=== PATIENT | female | born 1985 | race Caucasian/White ===

== ENCOUNTER 2023-04-14 12:44 | Day surgery (SDC) | payer OTHER ==
[~2023-04-14] VITALS: Ht 162.6 cm; Wt 128.5 kg
[~2023-04-14 12:44] MED LIST: HYDR-3490 PO; LISI10TA22 PO
[2023-04-14] MEDS ORDERED: LR 1,000 ML IV SCH (13:00)
[2023-04-14] MEDS ORDERED: ROCURONIUM BROMIDE 50MG/5ML VIAL As Ordered ONE (14:40)
[2023-04-14] MEDS ORDERED: propofoL 200 MG/20 ML VIAL As Ordered ONE (14:40)
[2023-04-14] MEDS ORDERED: KETOROLAC 60MG 2ML VIAL As Ordered ONE (14:40)
[2023-04-14] MEDS ORDERED: SUGAMMADEX SODIUM 500 MG/5 ML VIAL (BRIDION) As Ordered ONE (14:41)
[2023-04-14] MEDS ORDERED: ONDANSETRON 4MG 2ML VIAL As Ordered ONE (14:41)
[2023-04-14] MEDS ORDERED: LIDOCAINE 2% 100MG/5ML SDV (FOR ANES.) As Ordered ONE (14:57)
[2023-04-14] MEDS ORDERED: MIDAZOLAM INJ 2MG/2ML VIAL As Ordered ONE (15:25)
[2023-04-14] MEDS ORDERED: fentaNYL 100 MCG/2 ML INJECTION As Ordered ONE (15:25)
[2023-04-14] MEDS: AMPICILLIN SOD/SULBACTAM SOD 3 GM in D5W MINI-BAG PLUS 100 ML IV ONE (16:40)
[2023-04-14] MEDS: LIDOCAINE 2% W/ EPINEPHRINE 1.7 ML DENTAL INJ As Ordered ONE (16:42)
[2023-04-14] MEDS: CHLORHEXIDINE GLUCONATE 0.12 % 15ML UDC (PERIDEX ORAL RINSE) As Ordered ONE (16:42)
[2023-04-14] MEDS ORDERED: ACETAMINOPHEN 1000MG 100ML IV BAG As Ordered ONE (16:49)
[2023-04-14] MEDS ORDERED: ONDANSETRON 4MG 2ML VIAL IV PRN (16:50)
[2023-04-14] MEDS ORDERED: fentaNYL 100 MCG/2 ML INJECTION IV PRN (16:50)
[2023-04-14] MEDS ORDERED: MORPHINE 2 MG/ML 1ML VIAL IV PRN (16:50)
[2023-04-14] MEDS: oxyCODONE 5MG TAB PO PRN (17:11)
[2023-04-14 18:10] VITALS: BP 154/76; TEMP 98.1; O2SAT 98
== END 2023-04-14 18:20 | disposition home or self-care (01) ==
LOC: M SDC 12:44
PROVIDERS: ATTEND Dentist
DX: K02.9 Dental caries, unspecified (principal); F41.9 Anxiety disorder, unspecified; E66.01 Morbid (severe) obesity due to excess calories; G47.33 Obstructive sleep apnea (adult) (pediatric); Z79.899 Other long term (current) drug therapy
CPT/HCPCS: 88300; D7210; D9223; J0131; J0295; J1100; J1885; J2250; J2405; J3010